=== PATIENT | female | born 1990 | race Caucasian/White ===

== ENCOUNTER 2018-04-09 14:15 | Inpatient (IN) | payer BC ==
[2018-04-09 17:59] VITALS: BP 121/82
[2018-04-09] MEDS ORDERED: RISPERDAL1 MG PO (18:29)
[2018-04-09] MEDS ORDERED: TYLENOL EXTRA500 MG PO (18:30)
[2018-04-10 07:55] VITALS: BP 143/93
[2018-04-10 16:41] VITALS: BP 130/63
[2018-04-11 08:10] VITALS: BP 114/70
[2018-04-11] MEDS ORDERED: BUPROPION HCL100 M1 PO (10:21)
== END 2018-04-11 16:49 | disposition home or self-care (01) | DRG 885 ==
LOC: 1WEST 14:15
DX: F31.9 Bipolar disorder, unspecified (principal); F10.20 Alcohol dependence, uncomplicated; R45.851 Suicidal ideations; F19.90 Other psychoactive substance use, unspecified, uncomplicated
CPT/HCPCS: Q0177